=== PATIENT | male | born 1985 | race Caucasian/White ===

== ENCOUNTER 2019-07-21 08:53 | Emergency (ER) | payer SELFPAY ==
[~2019-07-21] VITALS: Ht 170.2 cm; Wt 99.8 kg
[2019-07-21 09:01] VITALS: Ht 170.2 cm; Wt 99.8 kg
[2019-07-21 11:27] VITALS: BP 166/85
== END 2019-07-21 11:27 | disposition other institution (70) ==
LOC: ED 08:53
DX: I10 Essential (primary) hypertension (principal)

== ENCOUNTER 2019-07-21 08:53 | Emergency (ER) | payer OTHER | END 2019-07-21 11:27 | disposition other institution (70) | LOC: ED 08:53 | DX: Z02.89 Encounter for other administrative examinations (principal) ==